=== PATIENT | male | born 1965 | race Caucasian/White ===

== ENCOUNTER 2020-07-07 14:34 | Observation (INO) | payer OTHER ==
[2020-07-07] MEDS ORDERED: Sodium Chloride 0.9% 1000 ML 1,000 ML IV STA (14:49)
[2020-07-07] MEDS ORDERED: Sodium Chloride 0.9% 1000 ML 1,000 ML ONE (14:54)
[2020-07-07] MEDS ORDERED: TYLENOL EXTRA STRENGTH 500 MG ONE (14:54)
[2020-07-07] MEDS ORDERED: TYLENOL EXTRA STRENGTH 500 MG PO STA (14:54)
[2020-07-07 15:23] LABS: Absolute Neutrophil Ct (ANC) 10.19 (1.4-6.9); BASOPHIL % 0.2 % (0.0-0.4); Basophil (Absolute #) 0.02 (0-0.4); Eosinophil % 0.1 % (0.00-5.0); Eosinophil (Absolute #) 0.01 (0-0.5); Hematocrit 45.3 % (42-50); Hemoglobin 14.8 gm/dl (12.5-18.0); Lymphocyte (Absolute #) 1.08 (1.0-4.6); Lymphocytes % 8.5 % (24.0-44.0); Mean Cell Volume 97.2 fl (78-100); Mean Corpuscular Hemoglobin 31.8 pg (26-32); Mean Corpuscular Hgb Concent. 32.7 g/dl (32-36); Mean Platelet Volume 10.9 fl (7.5-11.0); Monocyte (Absolute #) 1.44 (0.0-1.3); Monocytes % 11.3 % (0.0-12.0); Neutrophil % 79.9 % (36.0-66.0); Platelet Count 127 K/mm3 (150-450); Red Blood Count 4.66 M/mm3 (4.1-5.6); Red Cell Distribution Width 13.8 % (11.5-14.0); White Blood Count 12.7 K/mm3 (4.0-10.5)
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
[2020-07-07] MEDS ORDERED: Zithromax 500 MG/ 250 ML NaCl Premix 500 MG/250 ML IVPB IV STA (15:31)
[2020-07-07] MEDS ORDERED: ROCEPHIN 1 Gm-D5w 50 ml Bag** 1 G/50 ML IVPB IV STA (15:31)
[2020-07-07] MEDS ORDERED: Zithromax 500 MG/ 250 ML NaCl Premix 500 MG/250 ML IVPB IV ONE (15:33)
[2020-07-07] MEDS ORDERED: ROCEPHIN 1 Gm-D5w 50 ml Bag** 1 G/50 ML IVPB IV ONE (15:33)
[2020-07-07] MEDS ORDERED: DUONEB 0.5-3 MG/3 ml Neb IH ONE ×2 (15:37→15:42)
[2020-07-07] MEDS ORDERED: solu-MEDROL 125 MG IV ONE (15:37)
[2020-07-07] MEDS ORDERED: solu-MEDROL 125 MG ONE (15:41)
[2020-07-07 15:45] LABS: ALBUMIN 4.2 g/dL (3.5-5.0); ALKALINE PHOSPHATASE 84 U/L (38-126); ANION GAP 10.4 MEQ/L (5-15); BLOOD UREA NITROGEN 16 mg/dL (9-20); CHLORIDE 106 mmol/L (98-107); Calcium 8.9 mg/dL (8.4-10.2); Carbon Dioxide 25 mmol/L (22-30); Creatinine 1 0.89 mg/dL (0.66-1.25); Glucose 127 mg/dL (74-106); SGOT/AST 21 U/L (17-59); SGPT/ALT 23 U/L (0-50); SODIUM 137 mmol/L (137-145)
[2020-07-07 15:47] LABS: Appearance CLEAR (CLEAR); Bacteria RARE /HPF (NEGATIVE); Bilirubin NEGATIVE (NEGATIVE); Blood NEGATIVE Ery/ul (0-5); Epithelial Cells RARE /HPF (FEW); Glucose NEGATIVE (NEGATIVE); Ketones NEGATIVE (NEGATIVE); Leukocyte Esterase NEGATIVE (NEGATIVE); Mucus SLIGHT /HPF (NEGATIVE); Nitrite NEGATIVE (NEGATIVE); Protein,Urine Dip 30 (Negative); Specific Gravity 1.029 (1.005-1.025); Urobilinogen 2 mg/dL (0-1); WBC 0-2 /HPF (0-5)
[2020-07-07] MEDS ORDERED: TYLENOL 325 MG PO PRN (17:04)
[2020-07-07] MEDS: Sodium Chloride 0.9% 1000 ML 1,000 ML IV SCH (18:08)
--- NOTE | 2020-07-07 19:35 | XRAY ---
Indication: Fever. Fatigue. History aortic dissection 2008. Comparison: None Portable chest clear. Heart is not enlarged for AP portable technique with CABG surgery. Descending aorta is tortuous/ectatic presumed known aneurysm. Bony thorax intact. Impression: Nonacute chest with chronic features.
[2020-07-07] MEDS: Zocor 10MG PO SCH (21:34)
[2020-07-07] MEDS: Cozaar 50 MG PO SCH (21:49)
[2020-07-08] MEDS: Sodium Chloride 0.9% 1000 ML 1,000 ML IV SCH ×2 (02:19→16:01)
[2020-07-08 05:51] LABS: Absolute Neutrophil Ct (ANC) 9.89 (1.4-6.9); BASOPHIL % 0.1 % (0.0-0.4); Basophil (Absolute #) 0.01 (0-0.4); Eosinophil % 0.1 % (0.00-5.0); Eosinophil (Absolute #) 0.01 (0-0.5); Hematocrit 42.2 % (42-50); Hemoglobin 13.8 gm/dl (12.5-18.0); Lymphocyte (Absolute #) 0.86 (1.0-4.6); Lymphocytes % 7.6 % (24.0-44.0); Mean Cell Volume 97.5 fl (78-100); Mean Corpuscular Hemoglobin 31.9 pg (26-32); Mean Corpuscular Hgb Concent. 32.7 g/dl (32-36); Mean Platelet Volume 10.3 fl (7.5-11.0); Monocytes % 4.4 % (0.0-12.0); Neutrophil % 87.8 % (36.0-66.0); Platelet Count 125 K/mm3 (150-450); Red Blood Count 4.33 M/mm3 (4.1-5.6); Red Cell Distribution Width 13.8 % (11.5-14.0); White Blood Count 11.3 K/mm3 (4.0-10.5)
[2020-07-08 06:15] LABS: ANION GAP 9.5 MEQ/L (5-15); BLOOD UREA NITROGEN 16 mg/dL (9-20); CHLORIDE 112 mmol/L (98-107); Calcium 8.5 mg/dL (8.4-10.2); Carbon Dioxide 22 mmol/L (22-30); Creatinine 1 0.65 mg/dL (0.66-1.25); Glucose 214 mg/dL (74-106); Potassium 3.7 mmol/L (3.5-5.1); SODIUM 140 mmol/L (137-145)
[2020-07-08] MEDS: Zithromax 500 MG/ 250 ML NaCl Premix 500 MG/250 ML IVPB IV SCH (09:50)
[2020-07-08] MEDS: ROCEPHIN 1 Gm-D5w 50 ml Bag** 1 G/50 ML IVPB IV SCH (09:51)
[2020-07-08] MEDS: THERAGRAN MULTIVITAMIN PO SCH (09:59)
[2020-07-08] MEDS: Ecotrin 325 MG PO SCH (09:59)
[2020-07-08] MEDS: Toprol Xl 50 MG PO SCH (09:59)
[2020-07-08] MEDS ORDERED: NON-FORMULARY ITEM (Amlodipine Besylate [Amlodipine Besylate] 2.5 MG) PO SCH (10:00)
[2020-07-08] MEDS ORDERED: MULTIVITAMINS THERAPEUTIC PO SCH (10:00)
[2020-07-08] MEDS: Vitamin C 500 MG PO SCH (10:00)
[2020-07-08] MEDS ORDERED: NON-FORMULARY ITEM (Aspirin [Aspirin] 325 MG) PO SCH (10:00)
[2020-07-08] MEDS: NORVASC 5 MG PO SCH (10:08)
[2020-07-08] MEDS: Cozaar 50 MG PO SCH (10:09)
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
[2020-07-08] MEDS: CLARITIN 10 MG PO SCH (18:35)
[2020-07-08] MEDS: Zocor 10MG PO SCH (21:53)
[2020-07-08] MEDS ORDERED: NON-FORMULARY ITEM (Atorvastatin Calcium [Lipitor] 10 MG) PO SCH (22:00)
[2020-07-09] MEDS: Sodium Chloride 0.9% 1000 ML 1,000 ML IV SCH (01:41)
[2020-07-09 04:37] LABS: Absolute Neutrophil Ct (ANC) 8.63 (1.4-6.9); BASOPHIL % 0.2 % (0.0-0.4); Basophil (Absolute #) 0.02 (0-0.4); Eosinophil % 0.3 % (0.00-5.0); Eosinophil (Absolute #) 0.04 (0-0.5); Hematocrit 41.1 % (42-50); Hemoglobin 13.2 gm/dl (12.5-18.0); Lymphocyte (Absolute #) 1.89 (1.0-4.6); Lymphocytes % 16.1 % (24.0-44.0); Mean Cell Volume 99.3 fl (78-100); Mean Corpuscular Hemoglobin 31.9 pg (26-32); Mean Corpuscular Hgb Concent. 32.1 g/dl (32-36); Monocyte (Absolute #) 1.17 (0.0-1.3); Neutrophil % 73.4 % (36.0-66.0); Platelet Count 116 K/mm3 (150-450); Red Blood Count 4.14 M/mm3 (4.1-5.6); Red Cell Distribution Width 14.1 % (11.5-14.0); White Blood Count 11.8 K/mm3 (4.0-10.5)
[2020-07-09 05:11] LABS: ALKALINE PHOSPHATASE 58 U/L (38-126); ANION GAP 7.3 MEQ/L (5-15); BLOOD UREA NITROGEN 22 mg/dL (9-20); CHLORIDE 113 mmol/L (98-107); Calcium 8.2 mg/dL (8.4-10.2); Carbon Dioxide 25 mmol/L (22-30); Cholesterol 118 mg/dL (50-200); Creatinine 1 0.83 mg/dL (0.66-1.25); Glucose 111 mg/dL (74-106); HDL CHOLESTEROL 28 mg/dL (40-60); LDL, DIRECT 72 mg/dL (30-100); Potassium 4.5 mmol/L (3.5-5.1); Risk Ratio 4.2; SGOT/AST 18 U/L (17-59); SGPT/ALT 18 U/L (0-50); SODIUM 141 mmol/L (137-145); TRIGLYCERIDE 84 mg/dL (30-150)
[2020-07-09] MEDS: ROCEPHIN 1 Gm-D5w 50 ml Bag** 1 G/50 ML IVPB IV SCH (10:12)
[2020-07-09] MEDS: THERAGRAN MULTIVITAMIN PO SCH (10:16)
[2020-07-09] MEDS: Toprol Xl 50 MG PO SCH (10:16)
[2020-07-09] MEDS: CLARITIN 10 MG PO SCH (10:16)
[2020-07-09] MEDS: Cozaar 50 MG PO SCH (10:16)
[2020-07-09] MEDS: Vitamin C 500 MG PO SCH (10:17)
[2020-07-09] MEDS: Ecotrin 325 MG PO SCH (10:17)
[2020-07-09] MEDS: NORVASC 5 MG PO SCH (10:17)
--- NOTE | 2020-07-09 11:16 | XRAY ---
Exam: CT of the chest without IV contrast from 07/09/2020. CTDI: 12.57 mGy Comparison: AP upright portable chest film from 07/07/2020. Indication: 55-year-old male with possible pneumonia, fluid in lungs, weakness and fatigue. Technique: Non-IV contrast axial images were obtained through the chest. Reconstructed coronal and sagittal images were created and reviewed. Findings: Airspace infiltrate with air bronchograms and some adjacent pleural reaction is seen at the posterior aspect of the right lower lobe. There also appears to be a tiny associated pleural effusion on the right. These findings are consistent with pneumonia. I also note mild curvilinear stranding within the left lower lung field which is likely due to atelectasis and/or scarring. There also appears to be some pleural thickening along the lateral and posterior aspects of the distal descending thoracic aorta. The heart size is within normal limits. No pericardial effusion is seen. Moderate three-vessel coronary artery calcification is seen. I also note evidence of prior CABG with midline sternotomy. Vascular calcification is seen within the thoracic aorta. In addition, the distal descending thoracic aorta is aneurysmally distended measuring 4.8 cm in AP dimension and 4.9 cm in width. This is considerably more dilated than that seen on a CT of the abdomen/pelvis from 07/20/2008. This extends into the proximal abdominal aorta. I would recommend further evaluation with a CT of the chest, abdomen, and pelvis during the arterial phase to more precisely evaluate this. Granulomatous calcifications are seen overlying the left hilum, and to lesser extent, the right hilum. There are also a few scattered parenchymal calcified granulomas seen. No definite pathologic lymphadenopathy is seen. Some small pretracheal and left para-aortic lymph nodes are seen, the largest measuring 1.25 cm in short axis just anterior to the [place]. These are likely postinflammatory in etiology. I see no pneumothorax. No suspicious soft tissue nodules are identified. Surgical clips consistent with prior cholecystectomy are noted within the right upper quadrant. The adrenal glands appear unremarkable. The remainder of the visualized upper abdomen appears unremarkable. The skeleton reveals no acute fracture or aggressive bone lesion. There is mild deformity at the level of the mid lateral and anterior lateral aspect of the left fourth and fifth ribs which could be due to postsurgical changes, remote traumatic injury, or congenital/developmental anomaly. Mild degenerative changes are seen within the lower thoracic spine. Impression: 1. Air space infiltrates with air bronchograms and adjacent pleural reaction is seen at the posterior aspect of the right lower lobe consistent with pneumonia. An associated minimal posterior right pleural effusion is seen as well. 2. There appears to be aneurysmal enlargement of the distal descending thoracic aorta extending into the upper abdomen. This is not seen on a prior CT of the abdomen and pelvis from 07/20/2008. A CT of the chest, abdomen, and pelvis with IV contrast during the arterial phase is recommended for further evaluation. 3. There also appears to be some minimal scattered linear scarring/atelectasis within the left lung field. However, no air space infiltrates are seen on this side. I do note moderate focal pleural thickening along the posterior lateral and posterior margins of the distal descending thoracic aorta at the posterior medial left lung base. For example, see axial images #40 through #42. 4. Status post CABG, extensive 3 vessel coronary artery calcification, and old healed granulomatous disease are seen.
[2020-07-09 11:41] VITALS: BP 103/55; PULSE 58; O2SAT 91
[2020-07-09] MEDS: Zithromax 500 MG/ 250 ML NaCl Premix 500 MG/250 ML IVPB IV SCH (12:51)
== END 2020-07-09 12:56 | disposition home or self-care (01) ==
LOC: ED 14:34 → MED SURG 17:39
PROVIDERS: ADMIT Family Medicine; ATTEND General Practice
DX: J18.9 Pneumonia, unspecified organism (principal); I10 Essential (primary) hypertension; I25.10 Atherosclerotic heart disease of native coronary artery without angina pectoris; Z79.899 Other long term (current) drug therapy; Z86.79 Personal history of other diseases of the circulatory system
CPT/HCPCS: 36415; 71250; 80048; 80053; 80061; 81001; 83036; 83605; 83721; 85025; 87040; 93005; 93041; 93268; 94640; 94762; 96360; 96361; 96365; 96368; 96374; 99291; G0378; U0003; 71045; 99285; J0456; J0696; J2930; A9270-GY

== ENCOUNTER 2023-08-13 16:16 | Emergency (ER) | payer OTHER ==
[2023-08-13 16:46] VITALS: PULSE 70; RESP 18; TEMP 97.7
[2023-08-13] MEDS ORDERED: Hydromorphone 1 mg/ml Injection IM ONE (16:47)
[2023-08-13] MEDS ORDERED: Hydromorphone 1 mg/ml Injection ONE (16:57)
--- NOTE | 2023-08-13 17:49 | XRAY ---
Indication: Pain following fall. Comparison: None 3 view right shoulder demonstrates osteopenia, tiny right lung calcified granuloma, and sternotomy wires. No other bony, articular, or soft tissue abnormalities
[2023-08-13 17:52] VITALS: BP 100/68; O2SAT 93
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
== END 2023-08-13 18:53 | disposition home or self-care (01) ==
LOC: ED 16:16
DX: S43.401A Unspecified sprain of right shoulder joint, initial encounter (principal); W07.XXXA Fall from chair, initial encounter; E78.5 Hyperlipidemia, unspecified; I10 Essential (primary) hypertension; Z79.899 Other long term (current) drug therapy; Z28.310 Unvaccinated for COVID-19
CPT/HCPCS: 73030; 96372; 99283; J1170